=== PATIENT | female | born 1980 | race Caucasian/White ===

== ENCOUNTER 2020-11-11 11:41 | Emergency (ER) | payer OTHER ==
[2020-11-11 12:59] LABS: HEMOGLOBIN 15.1 gm/dl (12.3-15.3); RED BLOOD COUNT 4.76 M/UL (4.00-5.10); WHITE BLOOD COUNT 5.9 K/UL (4.5-11.0)
[2020-11-11 13:20] LABS: BUN/CREATININE RATIO 33 (0-10)
[2020-11-11] MEDS ORDERED: CEPHALEXIN500 M1 PO (14:07)
[2020-11-11] MEDS ORDERED: PROTONIX40 MG PO (14:07)
[2020-11-11] MEDS ORDERED: PHENERGAN 25 MG25 M1 PO (14:07)
[2020-11-11] MEDS ORDERED: ONDANSETRON ODT4 MG SL (14:07)
[2020-11-11] MEDS ORDERED: BUSPIRONE HCL5 MG PO (14:11)
== END 2020-11-11 14:46 | disposition home or self-care (01) ==
LOC: ER1 11:41
PROVIDERS: Physician Assistant
DX: N39.0 Urinary tract infection, site not specified (principal); K21.9 Gastro-esophageal reflux disease without esophagitis; E86.0 Dehydration; R11.2 Nausea with vomiting, unspecified; F41.9 Anxiety disorder, unspecified; Z91.012 Allergy to eggs
CPT/HCPCS: 80053; 81001; 83690; 84703; 85025; 87086; 96374; 96375; 99284; J2405; J2550; Q0177

== ENCOUNTER 2022-02-01 22:35 | Emergency (ER) | payer OTHER ==
[~2022-02-01 22:35] MED LIST: BUSPIRONE HCL5 MG PO; CEPHALEXIN500 M1 PO; ONDANSETRON ODT4 MG SL; PHENERGAN 25 MG25 M1 PO; PROTONIX40 MG PO
[2022-02-01 23:28] LABS: BUN/CREATININE RATIO 18 (0-10)
[2022-02-01 23:36] LABS: HEMOGLOBIN 12.7 gm/dl (12.3-15.3); RED BLOOD COUNT 4.13 M/UL (4.00-5.10); WHITE BLOOD COUNT 2.9 K/UL (4.5-11.0)
[2022-02-02] MEDS ORDERED: ZOFRAN ODT 4 MG4 MG PO (01:45)
[2022-02-02] MEDS ORDERED: IBUPROFEN600 MG PO (01:45)
[2022-02-02] MEDS ORDERED: OMNICEF 300 MG300 MG PO (01:45)
== END 2022-02-02 02:15 | disposition home or self-care (01) ==
LOC: ER1 22:35
PROVIDERS: Emergency Medicine
DX: U07.1 COVID-19 (principal); N39.0 Urinary tract infection, site not specified
CPT/HCPCS: 80053; 81001; 84703; 85025; 99284; U0002

== ENCOUNTER 2022-02-05 00:19 | Emergency (ER) | payer OTHER ==
[~2022-02-05 00:19] MED LIST changes: +IBUPROFEN600 MG PO; +OMNICEF 300 MG300 MG PO; +ZOFRAN ODT 4 MG4 MG PO
[2022-02-05 02:43] LABS: HEMOGLOBIN 13.7 gm/dl (12.3-15.3); RED BLOOD COUNT 4.48 M/UL (4.00-5.10); WHITE BLOOD COUNT 3.3 K/UL (4.5-11.0)
[2022-02-05 03:16] LABS: BUN/CREATININE RATIO 35 (0-10)
[2022-02-05] MEDS ORDERED: COMPAZINE5 MG PO (03:54)
== END 2022-02-05 04:09 | disposition home or self-care (01) ==
LOC: ER1 00:19
PROVIDERS: Physician Assistant
DX: E86.0 Dehydration (principal); R11.10 Vomiting, unspecified; E87.6 Hypokalemia; Z88.8 Allergy status to other drugs, medicaments and biological substances
CPT/HCPCS: 80053; 81001; 83690; 85025; 96374; 99284; J2405